=== PATIENT | male | born 1950 | race Asian ===

== ENCOUNTER 2020-02-04 15:19 | Inpatient (IN) | payer MEDICARE, MEDICAID, OTHER ==
[2020-02-04 16:03] LABS: ABS Lymphocytes 0.5 10^3/ul (1.0-4.8); ABS Monocytes 0.6 10^3/ul (0-0.8); Hematocrit 42 % (42-52); Hemoglobin 14.6 g/dL (14.0-18.0); Lymphocyte % 7.3 %; Mean Corpuscular HGB Conc 34 g/dL (31-36); Mean Corpuscular Hemoglobin 30 pg (27-31); Mean Corpuscular Volume 88 fL (80-94); Mean Platelet Volume 8.2 fL (7.4-10.4); Nucleated Red Blood Cells % 0.4; Platelet Count 160 10^3/uL (150-450); Red Blood Count 4.84 10^6 /uL (4.18-5.48); Red Cell Distribution Width 14 % (10-15)
[2020-02-04 16:19] LABS: ALT 31 U/L (7-52); Albumin 3.6 g/dL (3.2-5.2); Alkaline Phosphatase 50 U/L (34-104); BUN/Creatinine Ratio 18.5 (8-20); Blood Urea Nitrogen 15 mg/dL (6-24); C Reactive Protein 107.44 mg/L (<8.01); CO2 Carbon Dioxide 25 mmol/L (22-32); Chloride 95 mmol/L (101-111); EGFR Non-African American 95.1 (>60); Globulin 3.5 g/dL (2-4); Glucose 132 mg/dL (70-100); Sodium 129 mmol/L (135-145); Total Protein 7.1 g/dL (6.4-8.9)
[2020-02-04 16:20] LABS: Anion Gap 9 mmol/L (2-11)
[2020-02-04] MEDS ORDERED: NS 0.9% 1000 ml BAG 1,000 ML IV ONE (17:31)
[2020-02-04 17:38] LABS: Potassium Redraw 3.6 mmol/L (3.5-5.0)
[2020-02-04] MEDS ORDERED: Albuterol HFA INHALER 8 gm MDI INH PRN (18:26)
[2020-02-04 19:07] LABS: Ferritin 610.4 ng/mL (24-336)
[2020-02-04] MEDS ORDERED: Succinylcholine 200 mg VIAL 20 mg/ml 10 ml VIAL (200 mg) ONE (19:38)
[2020-02-04] MEDS ORDERED: Propofol 10 mg/ml 100 ML BTL 100 ML ONE (19:42)
[2020-02-04] MEDS ORDERED: fentaNYL 100 mcg/2 ml 50 MCG/ML VIAL IV SLOW PU PRN (20:11)
[2020-02-04] MEDS ORDERED: fentaNYL 100 mcg/2 ml 50 MCG/ML VIAL ONE (20:12)
[2020-02-04] MEDS: Propofol 10 mg/ml 100 ML BTL 100 ML IV SCH ×2 (20:20→23:10)
[2020-02-04] MEDS: Norepinephrine 16MCG/ML IVPRE 4,000 MCG/250 ML BAG IV ONE ×2 (20:35→20:46)
[2020-02-04] MEDS ORDERED: Propofol 10 MG/ML 20 ML BTL ONE (20:55)
[2020-02-04] MEDS ORDERED: fentaNYL 250 mcg/5 ml 50 MCG/ML 5 ml VIAL (250 MCG) ONE (20:55)
[2020-02-04] MEDS ORDERED: Midazolam 10 mg/10 ml VIAL 1 mg/ml 10 ml VIAL (10 mg) ONE (20:55)
[2020-02-04] MEDS ORDERED: Norepinephrine 16MCG/ML IVPRE 4,000 MCG/250 ML BAG IV SCH (21:00)
[2020-02-04] MEDS ORDERED: Phenylephrine 40 mcg/mL 10mL (400mcg) SYRINGE IV PUSH SCH (21:00)
[2020-02-04] MEDS: fentaNYL INFUSION 50 MCG/ML 2,500 MCG/50 ML BAG IV SCH (21:35)
[2020-02-04] MEDS: Enoxaparin 40 MG/0.4 ML SYR(*) SUBCUT SCH (22:55)
[2020-02-04] MEDS: HYDROXYCHLOROQUINE 25 MG/ML PO SCH (22:55)
[2020-02-04 23:47] LABS: Urine Appearance Clear; Urine Bilirubin Negative (Negative); Urine Blood 1+ (Negative); Urine Color Yellow; Urine Glucose Negative (Negative); Urine Ketones Negative (Negative); Urine Nitrite Negative (Negative); Urine Protein Negative (Negative); Urine Specific Gravity 1.005 (1.010-1.030); Urine Urobilinogen Negative (Negative)
[2020-02-04 23:49] LABS: Urine Bacteria Absent (Absent); Urine Red Blood Cell Trace(0-2/hpf) (Absent); Urine White Blood Cell Trace(0-5/hpf) (Absent)
[2020-02-05] MEDS ORDERED: NS 0.9% IV SCH (00:22)
[2020-02-05] MEDS ORDERED: NOREPINEPHRINE IV SCH (00:22)
[2020-02-05] MEDS: Norepinephrine IV 16 MG in NS 0.9% 250 ml 234 ML IVPB SCH ×3 (01:14→22:34)
[2020-02-05] MEDS: Propofol 10 mg/ml 100 ML BTL 100 ML IV SCH ×5 (01:54→23:11)
[2020-02-05] MEDS ORDERED: fentaNYL 100 mcg/2 ml 50 MCG/ML VIAL IV SLOW PU ONE (03:00)
[2020-02-05 05:34] LABS: ABS Lymphocytes 0.9 10^3/ul (1.0-4.8); ABS Monocytes 0.4 10^3/ul (0-0.8); Hematocrit 37 % (42-52); Hemoglobin 12.8 g/dL (14.0-18.0); Lymphocyte % 8.9 %; Mean Corpuscular HGB Conc 34 g/dL (31-36); Mean Corpuscular Hemoglobin 30 pg (27-31); Mean Corpuscular Volume 88 fL (80-94); Mean Platelet Volume 7.9 fL (7.4-10.4); Platelet Count 182 10^3/uL (150-450); Red Blood Count 4.24 10^6 /uL (4.18-5.48); Red Cell Distribution Width 13 % (10-15); White Blood Count 10.3 10^3/uL (3.5-10.8)
[2020-02-05 05:40] LABS: Albumin 2.9 g/dL (3.2-5.2); Calcium 7.5 mg/dL (8.6-10.3); Magnesium 1.9 mg/dL (1.9-2.7); Potassium 3.3 mmol/L (3.5-5.0); Total Bilirubin 0.7 mg/dL (0.2-1.0)
[2020-02-05] MEDS: fentaNYL INFUSION 50 MCG/ML 2,500 MCG/50 ML BAG IV SCH (05:44)
[2020-02-05 05:46] LABS: BUN/Creatinine Ratio 18.9 (8-20); C Reactive Protein 118.07 mg/L (<8.01); EGFR African American 95.7 (>60); EGFR Non-African American 79.1 (>60); Globulin 2.8 g/dL (2-4); Total Protein 5.7 g/dL (6.4-8.9)
[2020-02-05 06:19] LABS: Ferritin 599.5 ng/mL (24-336)
[2020-02-05] MEDS ORDERED: KCL 20 MEQ/100 ML IVPREMIX 20 MEQ/100 ML BAG IV ONE (07:57)
[2020-02-05] MEDS ORDERED: Magnesium Sulfate 2 gm BAG 2 GM/50 ML BAG IVPB ONE (07:59)
[2020-02-05] MEDS ORDERED: Potassium Chloride LIQUID 20 MEQ/15 ML LIQUID PO ONE (07:59)
[2020-02-05] MEDS ORDERED: KCL 20 MEQ/100 ML IVPREMIX 20 MEQ/100 ML BAG ONE (08:12)
[2020-02-05] MEDS ORDERED: Magnesium Sulfate 2 gm BAG 2 GM/50 ML BAG ONE (08:12)
[2020-02-05] MEDS ORDERED: Chlorhexidine MOUTHWASH 0.12% 15 ML UDC ONE (08:14)
[2020-02-05] MEDS: Pantoprazole VIAL 40 MG VIAL IV SCH (08:44)
[2020-02-05] MEDS: HYDROXYCHLOROQUINE 25 MG/ML PO SCH ×2 (09:25→20:25)
[2020-02-05] MEDS: Midazolam IV for DRIP 100 MG in NS 0.9% 100 ml BAG 80 ML IV SCH (16:22)
[2020-02-05] MEDS: Chlorhexidine MOUTHWASH 0.12% 15 ML UDC TOPICAL SCH ×3 (16:39→20:24)
[2020-02-05] MEDS ORDERED: Azithromycin 100 MG/5 ML SUSP 100 MG/5 ML BTL PO ONE (16:54)
[2020-02-05] MEDS ORDERED: Tocilizumab 200 MG/10 ML 10 ml VIAL IVPB ONE (16:55)
[2020-02-05] MEDS ORDERED: TOCILIZUMAB IVPB ONE (17:00)
[2020-02-05] MEDS ORDERED: NS 0.9% IVPB ONE (17:00)
[2020-02-05] MEDS: Enoxaparin 40 MG/0.4 ML SYR(*) SUBCUT SCH (20:24)
[2020-02-06] MEDS: Chlorhexidine MOUTHWASH 0.12% 15 ML UDC TOPICAL SCH ×7 (00:09→23:54)
[2020-02-06] MEDS: Propofol 10 mg/ml 100 ML BTL 100 ML IV SCH ×3 (05:15→14:16)
[2020-02-06 05:27] LABS: ABS Lymphocytes 0.8 10^3/ul (1.0-4.8); ABS Monocytes 0.2 10^3/ul (0-0.8); Eosinophil % 0.1 %; Hematocrit 38 % (42-52); Hemoglobin 12.9 g/dL (14.0-18.0); Mean Corpuscular HGB Conc 34 g/dL (31-36); Mean Corpuscular Hemoglobin 30 pg (27-31); Mean Corpuscular Volume 89 fL (80-94); Mean Platelet Volume 7.7 fL (7.4-10.4); Platelet Count 177 10^3/uL (150-450); Red Blood Count 4.25 10^6 /uL (4.18-5.48); Red Cell Distribution Width 14 % (10-15); White Blood Count 9.7 10^3/uL (3.5-10.8)
[2020-02-06 05:46] LABS: Albumin 2.8 g/dL (3.2-5.2); Albumin/Globulin Ratio 0.9 (1-3); BUN/Creatinine Ratio 12.5 (8-20); Calcium 7.7 mg/dL (8.6-10.3); EGFR African American 73.1 (>60); EGFR Non-African American 60.4 (>60); Globulin 3.2 g/dL (2-4); Total Bilirubin 0.6 mg/dL (0.2-1.0)
[2020-02-06 06:08] LABS: C Reactive Protein 196.56 mg/L (<8.01)
[2020-02-06 06:12] LABS: Potassium 3.7 mmol/L (3.5-5.0)
[2020-02-06] MEDS: Pantoprazole VIAL 40 MG VIAL IV SCH (08:07)
[2020-02-06 09:34] LABS: Magnesium 2.7 mg/dL (1.9-2.7)
[2020-02-06 09:39] LABS: Phosphorus 4.1 mg/dL (2.5-5.0)
[2020-02-06] MEDS: Norepinephrine 16MCG/ML IVPRE 4,000 MCG/250 ML BAG IV SCH (14:30)
[2020-02-06] MEDS: Azithromycin 100 MG/5 ML SUSP 100 MG/5 ML BTL PO SCH (15:56)
[2020-02-06] MEDS: Enoxaparin 40 MG/0.4 ML SYR(*) SUBCUT SCH (19:49)
[2020-02-06] MEDS: HYDROXYCHLOROQUINE 25 MG/ML PO SCH (19:49)
[2020-02-07] MEDS: Propofol 10 mg/ml 100 ML BTL 100 ML IV SCH ×4 (00:03→18:05)
[2020-02-07] MEDS: Midazolam IV for DRIP 100 MG in NS 0.9% 100 ml BAG 80 ML IV SCH (03:00)
[2020-02-07] MEDS: Chlorhexidine MOUTHWASH 0.12% 15 ML UDC TOPICAL SCH ×5 (03:29→20:11)
[2020-02-07 05:27] LABS: ABS Lymphocytes 0.5 10^3/ul (1.0-4.8); ABS Monocytes 0.3 10^3/ul (0-0.8); Eosinophil % 0.5 %; Hematocrit 37 % (42-52); Hemoglobin 12.5 g/dL (14.0-18.0); Lymphocyte % 5.7 %; Mean Corpuscular HGB Conc 34 g/dL (31-36); Mean Corpuscular Hemoglobin 30 pg (27-31); Mean Corpuscular Volume 89 fL (80-94); Mean Platelet Volume 7.5 fL (7.4-10.4); Platelet Count 216 10^3/uL (150-450); Red Blood Count 4.13 10^6 /uL (4.18-5.48); Red Cell Distribution Width 14 % (10-15); White Blood Count 9.1 10^3/uL (3.5-10.8)
[2020-02-07] MEDS: Norepinephrine 16MCG/ML IVPRE 4,000 MCG/250 ML BAG IV SCH (05:41)
[2020-02-07 05:43] LABS: Albumin 2.7 g/dL (3.2-5.2); Albumin/Globulin Ratio 0.8 (1-3); BUN/Creatinine Ratio 14.3 (8-20); Calcium 7.7 mg/dL (8.6-10.3); EGFR African American 61.2 (>60); EGFR Non-African American 50.5 (>60); Globulin 3.2 g/dL (2-4); Potassium 3.9 mmol/L (3.5-5.0); Total Bilirubin 0.4 mg/dL (0.2-1.0); Total Protein 5.9 g/dL (6.4-8.9)
[2020-02-07 05:58] LABS: C Reactive Protein 88.78 mg/L (<8.01)
[2020-02-07] MEDS: fentaNYL INFUSION 50 MCG/ML 2,500 MCG/50 ML BAG IV SCH (06:21)
[2020-02-07] MEDS: Pantoprazole VIAL 40 MG VIAL IV SCH (07:58)
[2020-02-07] MEDS: Enoxaparin 30 MG/0.3 ML SYR(*) SUBCUT SCH ×2 (09:54→20:10)
[2020-02-07 12:51] LABS: Magnesium 2.4 mg/dL (1.9-2.7)
[2020-02-07] MEDS: Azithromycin 100 MG/5 ML SUSP 100 MG/5 ML BTL PO SCH (17:55)
[2020-02-07] MEDS: HYDROXYCHLOROQUINE 25 MG/ML PO SCH (20:11)
[2020-02-08] MEDS: Chlorhexidine MOUTHWASH 0.12% 15 ML UDC TOPICAL SCH ×6 (00:21→20:25)
[2020-02-08] MEDS: Propofol 10 mg/ml 100 ML BTL 100 ML IV SCH ×5 (03:26→23:25)
[2020-02-08 05:09] LABS: ABS Eosinophils 0.1 10^3/ul (0-0.6); ABS Lymphocytes 0.5 10^3/ul (1.0-4.8); ABS Monocytes 0.3 10^3/ul (0-0.8); Eosinophil % 0.9 %; Hematocrit 37 % (42-52); Hemoglobin 12.2 g/dL (14.0-18.0); Lymphocyte % 4.6 %; Mean Corpuscular HGB Conc 34 g/dL (31-36); Mean Corpuscular Hemoglobin 30 pg (27-31); Mean Corpuscular Volume 89 fL (80-94); Mean Platelet Volume 7.1 fL (7.4-10.4); Nucleated Red Blood Cells % 0.1; Platelet Count 233 10^3/uL (150-450); Red Blood Count 4.08 10^6 /uL (4.18-5.48); Red Cell Distribution Width 14 % (10-15); White Blood Count 9.8 10^3/uL (3.5-10.8)
[2020-02-08 05:26] LABS: Albumin 2.5 g/dL (3.2-5.2); Albumin/Globulin Ratio 0.9 (1-3); BUN/Creatinine Ratio 18.8 (8-20); CRP High Sensitivity 27.25 mg/L (<2.00); Calcium 7.5 mg/dL (8.6-10.3); EGFR African American 67.8 (>60); EGFR Non-African American 56.1 (>60); Globulin 2.9 g/dL (2-4); Potassium 3.6 mmol/L (3.5-5.0); Total Bilirubin 0.5 mg/dL (0.2-1.0); Total Protein 5.4 g/dL (6.4-8.9)
[2020-02-08] MEDS: Pantoprazole VIAL 40 MG VIAL IV SCH (08:12)
[2020-02-08] MEDS: Enoxaparin 30 MG/0.3 ML SYR(*) SUBCUT SCH ×2 (08:12→20:25)
[2020-02-08] MEDS ORDERED: Furosemide 20 mg/2 ml IV VIAL IV SLOW PU ONE (13:34)
[2020-02-08] MEDS: Norepinephrine 16MCG/ML IVPRE 4,000 MCG/250 ML BAG IV SCH (18:14)
[2020-02-08] MEDS: Azithromycin 100 MG/5 ML SUSP 100 MG/5 ML BTL PO SCH (18:17)
[2020-02-08] MEDS: HYDROXYCHLOROQUINE 25 MG/ML PO SCH (20:25)
[2020-02-09] MEDS: Chlorhexidine MOUTHWASH 0.12% 15 ML UDC TOPICAL SCH ×6 (00:42→20:23)
[2020-02-09] MEDS: fentaNYL INFUSION 50 MCG/ML 2,500 MCG/50 ML BAG IV SCH ×2 (02:25→21:35)
[2020-02-09] MEDS: Propofol 10 mg/ml 100 ML BTL 100 ML IV SCH ×3 (06:27→23:42)
[2020-02-09 06:48] LABS: Albumin 2.5 g/dL (3.2-5.2); Albumin/Globulin Ratio 0.8 (1-3); BUN/Creatinine Ratio 23.5 (8-20); C Reactive Protein 20.1 mg/L (<8.01); Calcium 7.8 mg/dL (8.6-10.3); EGFR African American 73.8 (>60); Globulin 3.1 g/dL (2-4); Potassium 3.5 mmol/L (3.5-5.0); Total Bilirubin 0.3 mg/dL (0.2-1.0); Total Protein 5.6 g/dL (6.4-8.9)
[2020-02-09] MEDS ORDERED: Potassium Chloride LIQUID 20 MEQ/15 ML LIQUID PO ONE (09:41)
[2020-02-09] MEDS ORDERED: Furosemide 20 mg/2 ml IV VIAL IV SLOW PU ONE ×2 (09:41→16:58)
[2020-02-09] MEDS: Enoxaparin 30 MG/0.3 ML SYR(*) SUBCUT SCH ×2 (10:05→20:23)
[2020-02-09] MEDS: Pantoprazole VIAL 40 MG VIAL IV SCH (10:06)
[2020-02-09] MEDS: Polyethylene Glycol 3350 17 GM PACKET PO PRN (10:07)
[2020-02-09] MEDS: Magnesium Hydroxide LIQ 30 ML UDC PO SCH (10:07)
[2020-02-09] MEDS: Norepinephrine 16MCG/ML IVPRE 4,000 MCG/250 ML BAG IV SCH (14:50)
[2020-02-09] MEDS: Azithromycin 100 MG/5 ML SUSP 100 MG/5 ML BTL PO SCH (20:23)
[2020-02-09] MEDS: Senna TAB 8.6 mg TAB PO SCH (20:23)
[2020-02-10] MEDS: Chlorhexidine MOUTHWASH 0.12% 15 ML UDC TOPICAL SCH ×6 (00:09→20:50)
[2020-02-10 04:54] LABS: Hematocrit 37 % (42-52); Hemoglobin 12.5 g/dL (14.0-18.0); Mean Corpuscular HGB Conc 33 g/dL (31-36); Mean Corpuscular Hemoglobin 30 pg (27-31); Mean Corpuscular Volume 90 fL (80-94); Mean Platelet Volume 7.5 fL (7.4-10.4); Platelet Count 268 10^3/uL (150-450); Red Blood Count 4.16 10^6 /uL (4.18-5.48); Red Cell Distribution Width 14 % (10-15); White Blood Count 10.5 10^3/uL (3.5-10.8)
[2020-02-10 05:07] LABS: C Reactive Protein 16.72 mg/L (<8.01)
[2020-02-10] MEDS: Propofol 10 mg/ml 100 ML BTL 100 ML IV SCH ×3 (05:28→18:17)
[2020-02-10 06:02] LABS: ABS Eosinophils 0.1 10^3/ul (0-0.6); ABS Lymphocytes 0.9 10^3/ul (1.0-4.8); ABS Monocytes 0.5 10^3/ul (0-0.8); Eosinophil % 0.8 %; Lymphocyte % 8.3 %; Nucleated Red Blood Cells % 0.1
[2020-02-10] MEDS: Magnesium Hydroxide LIQ 30 ML UDC PO SCH (07:57)
[2020-02-10] MEDS: Pantoprazole VIAL 40 MG VIAL IV SCH (07:57)
[2020-02-10] MEDS: Polyethylene Glycol 3350 17 GM PACKET PO PRN (07:57)
[2020-02-10] MEDS: Enoxaparin 30 MG/0.3 ML SYR(*) SUBCUT SCH ×2 (07:57→20:51)
[2020-02-10] MEDS ORDERED: Ondansetron 4 mg VIAL 2 MG/ML 2 ml VIAL IV PRN (10:13)
[2020-02-10 10:22] LABS: Albumin 2.8 g/dL (3.2-5.2); Albumin/Globulin Ratio 0.8 (1-3); BUN/Creatinine Ratio 29.5 (8-20); Calcium 7.9 mg/dL (8.6-10.3); EGFR African American 71.7 (>60); EGFR Non-African American 59.2 (>60); Globulin 3.4 g/dL (2-4); Magnesium 2.4 mg/dL (1.9-2.7); Phosphorus 3.7 mg/dL (2.5-5.0); Potassium 4.6 mmol/L (3.5-5.0); Total Bilirubin 0.4 mg/dL (0.2-1.0); Total Protein 6.2 g/dL (6.4-8.9)
[2020-02-10] MEDS: Furosemide 20 mg/2 ml IV VIAL IV SLOW PU SCH ×2 (10:46→20:52)
[2020-02-10] MEDS: OXACILLIN IVPB SCH ×3 (11:00→16:55)
[2020-02-10] MEDS: NS 0.9% IVPB SCH ×3 (11:00→16:55)
[2020-02-10] MEDS ORDERED: Metoclopramide 5 MG/ML VIAL (10 mg) IV ONE (15:51)
[2020-02-10] MEDS: Metoclopramide 5 MG/ML VIAL (10 mg) IV SCH (17:00)
[2020-02-10] MEDS: Senna TAB 8.6 mg TAB PO SCH (20:50)
[2020-02-11] MEDS: Chlorhexidine MOUTHWASH 0.12% 15 ML UDC TOPICAL SCH ×6 (00:12→20:52)
[2020-02-11] MEDS: OXACILLIN IVPB SCH ×4 (00:12→17:10)
[2020-02-11] MEDS: NS 0.9% IVPB SCH ×4 (00:12→17:10)
[2020-02-11] MEDS: Metoclopramide 5 MG/ML VIAL (10 mg) IV SCH ×4 (00:13→17:09)
[2020-02-11] MEDS: Propofol 10 mg/ml 100 ML BTL 100 ML IV SCH ×5 (00:17→21:05)
[2020-02-11] MEDS: Furosemide 20 mg/2 ml IV VIAL IV SLOW PU SCH ×2 (01:30→08:00)
[2020-02-11 05:35] LABS: Albumin 2.9 g/dL (3.2-5.2); Albumin/Globulin Ratio 0.9 (1-3); BUN/Creatinine Ratio 35.2 (8-20); C Reactive Protein 14.4 mg/L (<8.01); Calcium 7.8 mg/dL (8.6-10.3); EGFR African American 60.2 (>60); EGFR Non-African American 49.7 (>60); Globulin 3.2 g/dL (2-4); Magnesium 2.4 mg/dL (1.9-2.7); Phosphorus 3.9 mg/dL (2.5-5.0); Potassium 3.8 mmol/L (3.5-5.0); Total Bilirubin 0.6 mg/dL (0.2-1.0); Total Protein 6.1 g/dL (6.4-8.9)
[2020-02-11] MEDS: Pantoprazole VIAL 40 MG VIAL IV SCH (08:00)
[2020-02-11] MEDS: Magnesium Hydroxide LIQ 30 ML UDC PO SCH (08:00)
[2020-02-11] MEDS: Polyethylene Glycol 3350 17 GM PACKET PO SCH ×2 (08:00→11:29)
[2020-02-11] MEDS: Enoxaparin 30 MG/0.3 ML SYR(*) SUBCUT SCH ×2 (08:00→20:52)
[2020-02-11] MEDS ORDERED: Potassium Chloride LIQUID 20 MEQ/15 ML LIQUID PO ONE (09:02)
[2020-02-11 13:21] LABS: ABS Eosinophils 0.1 10^3/ul (0-0.6); ABS Lymphocytes 0.6 10^3/ul (1.0-4.8); ABS Monocytes 0.7 10^3/ul (0-0.8); Eosinophil % 1.1 %; Hematocrit 36 % (42-52); Hemoglobin 12.3 g/dL (14.0-18.0); Lymphocyte % 5.8 %; Mean Corpuscular HGB Conc 35 g/dL (31-36); Mean Corpuscular Hemoglobin 31 pg (27-31); Mean Corpuscular Volume 89 fL (80-94); Mean Platelet Volume 7.6 fL (7.4-10.4); Nucleated Red Blood Cells % 0.1; Platelet Count 321 10^3/uL (150-450); Red Blood Count 4.02 10^6 /uL (4.18-5.48); Red Cell Distribution Width 14 % (10-15); White Blood Count 10.5 10^3/uL (3.5-10.8)
[2020-02-11] MEDS: fentaNYL INFUSION 50 MCG/ML 2,500 MCG/50 ML BAG IV SCH (19:37)
[2020-02-11] MEDS: Senna TAB 8.6 mg TAB PO SCH (20:53)
[2020-02-12] MEDS: NS 0.9% IVPB SCH ×5 (01:26→22:24)
[2020-02-12] MEDS: Metoclopramide 5 MG/ML VIAL (10 mg) IV SCH ×5 (01:26→22:24)
[2020-02-12] MEDS: OXACILLIN IVPB SCH ×5 (01:26→22:24)
[2020-02-12] MEDS: Chlorhexidine MOUTHWASH 0.12% 15 ML UDC TOPICAL SCH ×7 (01:27→23:07)
[2020-02-12] MEDS: Propofol 10 mg/ml 100 ML BTL 100 ML IV SCH ×4 (01:34→23:24)
[2020-02-12 04:55] LABS: Hematocrit 34 % (42-52); Hemoglobin 11.8 g/dL (14.0-18.0); Mean Corpuscular HGB Conc 35 g/dL (31-36); Mean Corpuscular Hemoglobin 31 pg (27-31); Mean Corpuscular Volume 89 fL (80-94); Mean Platelet Volume 7.6 fL (7.4-10.4); Platelet Count 331 10^3/uL (150-450); Red Blood Count 3.82 10^6 /uL (4.18-5.48); Red Cell Distribution Width 14 % (10-15); White Blood Count 7.3 10^3/uL (3.5-10.8)
[2020-02-12 05:14] LABS: Albumin 2.8 g/dL (3.2-5.2); Albumin/Globulin Ratio 0.9 (1-3); BUN/Creatinine Ratio 42.1 (8-20); Calcium 7.6 mg/dL (8.6-10.3); EGFR African American 72.4 (>60); EGFR Non-African American 59.8 (>60); Globulin 3.1 g/dL (2-4); Potassium 3.8 mmol/L (3.5-5.0); Total Bilirubin 0.5 mg/dL (0.2-1.0); Total Protein 5.9 g/dL (6.4-8.9)
[2020-02-12 05:26] LABS: ABS Eosinophils 0.1 10^3/ul (0-0.6); ABS Monocytes 0.6 10^3/ul (0-0.8); Eosinophil % 1.6 %; Lymphocyte % 13.3 %
[2020-02-12] MEDS: Enoxaparin 30 MG/0.3 ML SYR(*) SUBCUT SCH ×2 (08:07→20:01)
[2020-02-12] MEDS: Pantoprazole VIAL 40 MG VIAL IV SCH (08:07)
[2020-02-12] MEDS: Polyethylene Glycol 3350 17 GM PACKET PO SCH (08:08)
[2020-02-12] MEDS: Magnesium Hydroxide LIQ 30 ML UDC PO SCH (08:08)
[2020-02-12] MEDS: Norepinephrine 16MCG/ML IVPRE 4,000 MCG/250 ML BAG IV SCH (10:01)
[2020-02-12] MEDS ORDERED: acetaZOLAMIDE IV 500 MG in NS 0.9% 50 ML 50 ML IVPB ONE (11:37)
[2020-02-12] MEDS: Senna TAB 8.6 mg TAB PO SCH (20:01)
[2020-02-13] MEDS: Chlorhexidine MOUTHWASH 0.12% 15 ML UDC TOPICAL SCH ×5 (03:59→21:06)
[2020-02-13] MEDS: OXACILLIN IVPB SCH ×4 (04:47→21:08)
[2020-02-13] MEDS: NS 0.9% IVPB SCH ×4 (04:47→21:08)
[2020-02-13] MEDS: Metoclopramide 5 MG/ML VIAL (10 mg) IV SCH ×4 (04:47→21:06)
[2020-02-13 06:08] LABS: Hematocrit 33 % (42-52); Hemoglobin 11.1 g/dL (14.0-18.0); Mean Corpuscular HGB Conc 34 g/dL (31-36); Mean Corpuscular Hemoglobin 31 pg (27-31); Mean Corpuscular Volume 91 fL (80-94); Mean Platelet Volume 7.6 fL (7.4-10.4); Platelet Count 326 10^3/uL (150-450); Red Blood Count 3.63 10^6 /uL (4.18-5.48); Red Cell Distribution Width 14 % (10-15); White Blood Count 5.2 10^3/uL (3.5-10.8)
[2020-02-13 06:24] LABS: ABS Eosinophils 0.1 10^3/ul (0-0.6); ABS Lymphocytes 0.8 10^3/ul (1.0-4.8); ABS Monocytes 0.4 10^3/ul (0-0.8); Eosinophil % 1.6 %; Lymphocyte % 14.7 %
[2020-02-13 06:25] LABS: Albumin 2.7 g/dL (3.2-5.2); Albumin/Globulin Ratio 0.8 (1-3); BUN/Creatinine Ratio 42.1 (8-20); Calcium 7.7 mg/dL (8.6-10.3); EGFR African American 72.4 (>60); EGFR Non-African American 59.8 (>60); Globulin 3.2 g/dL (2-4); Potassium 3.3 mmol/L (3.5-5.0); Total Bilirubin 0.4 mg/dL (0.2-1.0); Total Protein 5.9 g/dL (6.4-8.9)
[2020-02-13] MEDS: Pantoprazole VIAL 40 MG VIAL IV SCH (09:15)
[2020-02-13] MEDS: Polyethylene Glycol 3350 17 GM PACKET PO SCH (09:15)
[2020-02-13] MEDS: Magnesium Hydroxide LIQ 30 ML UDC PO SCH (09:15)
[2020-02-13] MEDS: Enoxaparin 30 MG/0.3 ML SYR(*) SUBCUT SCH ×2 (09:15→21:06)
[2020-02-13] MEDS: Propofol 10 mg/ml 100 ML BTL 100 ML IV SCH ×3 (09:45→21:06)
[2020-02-13] MEDS: KCL 10 MEQ/50 ML IVPREMIX 10 MEQ/50 ML BAG IV SCH ×2 (11:55→13:36)
[2020-02-13] MEDS: Senna TAB 8.6 mg TAB PO SCH (21:30)
[2020-02-14] MEDS: Chlorhexidine MOUTHWASH 0.12% 15 ML UDC TOPICAL SCH ×6 (00:13→20:25)
[2020-02-14] MEDS: Propofol 10 mg/ml 100 ML BTL 100 ML IV SCH ×4 (02:44→21:28)
[2020-02-14] MEDS: fentaNYL INFUSION 50 MCG/ML 2,500 MCG/50 ML BAG IV SCH (02:50)
[2020-02-14] MEDS: NS 0.9% IVPB SCH ×4 (05:28→23:22)
[2020-02-14] MEDS: Metoclopramide 5 MG/ML VIAL (10 mg) IV SCH ×3 (05:28→16:27)
[2020-02-14] MEDS: OXACILLIN IVPB SCH ×4 (05:28→23:22)
[2020-02-14 06:03] LABS: ABS Eosinophils 0.1 10^3/ul (0-0.6); ABS Lymphocytes 0.8 10^3/ul (1.0-4.8); ABS Monocytes 0.5 10^3/ul (0-0.8); Eosinophil % 1.8 %; Hematocrit 34 % (42-52); Hemoglobin 11.1 g/dL (14.0-18.0); Lymphocyte % 13.4 %; Mean Corpuscular HGB Conc 33 g/dL (31-36); Mean Corpuscular Hemoglobin 30 pg (27-31); Mean Corpuscular Volume 92 fL (80-94); Mean Platelet Volume 7.5 fL (7.4-10.4); Platelet Count 339 10^3/uL (150-450); Red Blood Count 3.67 10^6 /uL (4.18-5.48); Red Cell Distribution Width 15 % (10-15); White Blood Count 5.7 10^3/uL (3.5-10.8)
[2020-02-14 06:18] LABS: Albumin 2.7 g/dL (3.2-5.2); Albumin/Globulin Ratio 0.8 (1-3); BUN/Creatinine Ratio 44.4 (8-20); Calcium 7.7 mg/dL (8.6-10.3); EGFR African American 82.5 (>60); EGFR Non-African American 68.2 (>60); Globulin 3.3 g/dL (2-4); Potassium 3.5 mmol/L (3.5-5.0); Total Bilirubin 0.3 mg/dL (0.2-1.0)
[2020-02-14] MEDS: Polyethylene Glycol 3350 17 GM PACKET PO SCH (08:51)
[2020-02-14] MEDS: Pantoprazole VIAL 40 MG VIAL IV SCH (08:51)
[2020-02-14] MEDS: Enoxaparin 30 MG/0.3 ML SYR(*) SUBCUT SCH ×2 (08:51→20:25)
[2020-02-14] MEDS: Magnesium Hydroxide LIQ 30 ML UDC PO SCH (08:52)
[2020-02-14] MEDS ORDERED: NS 0.9% 100 ml BAG 100 ML ONE (10:32)
[2020-02-15] MEDS: Chlorhexidine MOUTHWASH 0.12% 15 ML UDC TOPICAL SCH ×7 (01:45→23:32)
[2020-02-15] MEDS: Propofol* 20 ML VIAL - FOR IV LINE PRIMING ONLY SCH ×3 (04:14→15:00)
[2020-02-15] MEDS: Propofol 10 mg/ml 100 ML BTL 100 ML IV SCH ×3 (04:16→20:37)
[2020-02-15 04:42] LABS: ABS Eosinophils 0.1 10^3/ul (0-0.6); ABS Lymphocytes 0.9 10^3/ul (1.0-4.8); ABS Monocytes 0.6 10^3/ul (0-0.8); Eosinophil % 1.4 %; Hematocrit 33 % (42-52); Hemoglobin 11.1 g/dL (14.0-18.0); Lymphocyte % 14.4 %; Mean Corpuscular HGB Conc 33 g/dL (31-36); Mean Corpuscular Hemoglobin 30 pg (27-31); Mean Corpuscular Volume 91 fL (80-94); Mean Platelet Volume 7.3 fL (7.4-10.4); Platelet Count 332 10^3/uL (150-450); Red Blood Count 3.68 10^6 /uL (4.18-5.48); Red Cell Distribution Width 14 % (10-15); White Blood Count 6.2 10^3/uL (3.5-10.8)
[2020-02-15 05:38] LABS: Albumin 2.7 g/dL (3.2-5.2); Calcium 7.9 mg/dL (8.6-10.3); Potassium 3.8 mmol/L (3.5-5.0); Total Bilirubin 0.3 mg/dL (0.2-1.0)
[2020-02-15 05:44] LABS: Albumin/Globulin Ratio 0.9 (1-3); BUN/Creatinine Ratio 40.7 (8-20); EGFR African American 100.6 (>60); EGFR Non-African American 83.1 (>60); Globulin 2.9 g/dL (2-4); Total Protein 5.6 g/dL (6.4-8.9)
[2020-02-15] MEDS: NS 0.9% IVPB SCH ×4 (06:09→22:13)
[2020-02-15] MEDS: OXACILLIN IVPB SCH ×4 (06:09→22:13)
[2020-02-15] MEDS: Enoxaparin 30 MG/0.3 ML SYR(*) SUBCUT SCH (08:13)
[2020-02-15] MEDS: Polyethylene Glycol 3350 17 GM PACKET PO SCH (08:13)
[2020-02-15] MEDS: Magnesium Hydroxide LIQ 30 ML UDC PO SCH (08:13)
[2020-02-15] MEDS: Pantoprazole VIAL 40 MG VIAL IV SCH (08:13)
[2020-02-15] MEDS: Famotidine IV 10 MG/ML 2 ml VIAL (20 mg) IV SLOW PU SCH (20:01)
[2020-02-16] MEDS: Propofol 10 mg/ml 100 ML BTL 100 ML IV SCH ×4 (01:23→21:59)
[2020-02-16] MEDS: Propofol* 20 ML VIAL - FOR IV LINE PRIMING ONLY SCH ×3 (01:23→17:14)
[2020-02-16] MEDS: Chlorhexidine MOUTHWASH 0.12% 15 ML UDC TOPICAL SCH ×6 (03:35→23:32)
[2020-02-16 04:17] LABS: Albumin 2.7 g/dL (3.2-5.2); Albumin/Globulin Ratio 0.9 (1-3); BUN/Creatinine Ratio 38.4 (8-20); Calcium 7.7 mg/dL (8.6-10.3); EGFR African American 107.3 (>60); EGFR Non-African American 88.7 (>60); Total Bilirubin 0.3 mg/dL (0.2-1.0); Total Protein 5.7 g/dL (6.4-8.9)
[2020-02-16 04:22] LABS: ABS Eosinophils 0.1 10^3/ul (0-0.6); ABS Monocytes 0.5 10^3/ul (0-0.8); Eosinophil % 1.4 %; Hematocrit 34 % (42-52); Hemoglobin 11.1 g/dL (14.0-18.0); Lymphocyte % 17.1 %; Mean Corpuscular HGB Conc 33 g/dL (31-36); Mean Corpuscular Hemoglobin 30 pg (27-31); Mean Corpuscular Volume 90 fL (80-94); Mean Platelet Volume 7.6 fL (7.4-10.4); Platelet Count 326 10^3/uL (150-450); Red Blood Count 3.74 10^6 /uL (4.18-5.48); Red Cell Distribution Width 14 % (10-15); White Blood Count 5.7 10^3/uL (3.5-10.8)
[2020-02-16] MEDS: NS 0.9% IVPB SCH (04:34)
[2020-02-16] MEDS: OXACILLIN IVPB SCH (04:34)
[2020-02-16] MEDS ORDERED: Potassium Chloride LIQUID 20 MEQ/15 ML LIQUID PO ONE (05:15)
[2020-02-16] MEDS: Famotidine IV 10 MG/ML 2 ml VIAL (20 mg) IV SLOW PU SCH ×2 (08:24→20:39)
[2020-02-16] MEDS ORDERED: Piperacillin/Tazobac ADVAN(*) 3.375 GM in NS 0.9% 100 ml BAG 100 ML IVPB ONE (08:50)
[2020-02-16] MEDS ORDERED: Zosyn per Pharmacy NOTE FOLLOW UP SCH (09:00)
[2020-02-16] MEDS: Enoxaparin 40 MG/0.4 ML SYR(*) SUBCUT SCH (10:43)
[2020-02-16] MEDS ORDERED: KCL 20 MEQ/100 ML IVPREMIX 20 MEQ/100 ML BAG IV SCH (16:00)
[2020-02-16] MEDS: ZOSYN 3.375 GM Q8H per EXTENDED INFUSION IVPB SCH ×2 (16:29→23:44)
[2020-02-17] MEDS: Propofol 10 mg/ml 100 ML BTL 100 ML IV SCH ×2 (03:21→08:12)
[2020-02-17] MEDS: Chlorhexidine MOUTHWASH 0.12% 15 ML UDC TOPICAL SCH ×3 (03:43→10:45)
[2020-02-17 05:18] LABS: BUN/Creatinine Ratio 34.1 (8-20); Calcium 7.3 mg/dL (8.6-10.3); EGFR African American 113.4 (>60); EGFR Non-African American 93.7 (>60); Magnesium 1.8 mg/dL (1.9-2.7); Potassium 2.9 mmol/L (3.5-5.0)
[2020-02-17] MEDS: Propofol* 20 ML VIAL - FOR IV LINE PRIMING ONLY SCH (07:03)
[2020-02-17] MEDS: ZOSYN 3.375 GM Q8H per EXTENDED INFUSION IVPB SCH ×2 (08:00→16:00)
[2020-02-17] MEDS: Enoxaparin 40 MG/0.4 ML SYR(*) SUBCUT SCH (08:12)
[2020-02-17] MEDS: Potassium Chloride LIQUID 20 MEQ/15 ML LIQUID PO SCH ×2 (08:13→10:33)
[2020-02-17] MEDS: Famotidine IV 10 MG/ML 2 ml VIAL (20 mg) IV SLOW PU SCH ×2 (08:13→22:52)
[2020-02-17] MEDS ORDERED: Magnesium Sulfate 2 GM IV (Premix) IVPB ONE (10:00)
[2020-02-17] MEDS: KCL 20 MEQ/100 ML IVPREMIX 20 MEQ/100 ML BAG IV SCH ×2 (10:38→13:15)
[2020-02-17] MEDS ORDERED: Lorazepam PYXIS KEY PRN (13:49)
[2020-02-17 16:37] LABS: BUN/Creatinine Ratio 31.3 (8-20); Calcium 7.8 mg/dL (8.6-10.3); EGFR African American 116.7 (>60); EGFR Non-African American 96.4 (>60); Potassium 3.4 mmol/L (3.5-5.0)
[2020-02-17 17:26] LABS: Magnesium 2.3 mg/dL (1.9-2.7)
[2020-02-17] MEDS ORDERED: Haloperidol 5 mg/ml SDV IV/IM 5 MG/ML AMP ONE (19:39)
[2020-02-17] MEDS ORDERED: Dexmedetomidine 1,000 MCG in NS 0.9% 250 ml 240 ML IV SCH (21:00)
[2020-02-18] MEDS: ZOSYN 3.375 GM Q8H per EXTENDED INFUSION IVPB SCH ×3 (00:13→16:48)
[2020-02-18 05:25] LABS: Hematocrit 33 % (42-52); Hemoglobin 11.4 g/dL (14.0-18.0); Mean Corpuscular HGB Conc 34 g/dL (31-36); Mean Corpuscular Hemoglobin 30 pg (27-31); Mean Corpuscular Volume 89 fL (80-94); Mean Platelet Volume 7.8 fL (7.4-10.4); Platelet Count 287 10^3/uL (150-450); Red Blood Count 3.76 10^6 /uL (4.18-5.48); Red Cell Distribution Width 14 % (10-15)
[2020-02-18 05:35] LABS: BUN/Creatinine Ratio 30.8 (8-20); Calcium 7.6 mg/dL (8.6-10.3); EGFR African American 120.1 (>60); EGFR Non-African American 99.3 (>60); Potassium 3.1 mmol/L (3.5-5.0)
[2020-02-18] MEDS: KCL 20 MEQ/100 ML IVPREMIX 20 MEQ/100 ML BAG IV SCH ×3 (08:09→12:43)
[2020-02-18] MEDS: Enoxaparin 40 MG/0.4 ML SYR(*) SUBCUT SCH (09:15)
[2020-02-18] MEDS: Famotidine IV 10 MG/ML 2 ml VIAL (20 mg) IV SLOW PU SCH ×2 (09:15→19:44)
[2020-02-18] MEDS ORDERED: KCL 20 MEQ/100 ML IVPREMIX 20 MEQ/100 ML BAG IV SCH (14:00)
[2020-02-18] MEDS: Dextran 70/Hypromellose Tears Eye Drops 15 ml BTL (for Artificials Tears) BOTH EYES PRN (21:52)
[2020-02-19] MEDS: ZOSYN 3.375 GM Q8H per EXTENDED INFUSION IVPB SCH ×3 (00:38→15:59)
[2020-02-19 05:06] LABS: Urine Appearance Clear; Urine Bilirubin Negative (Negative); Urine Blood Negative (Negative); Urine Color Yellow; Urine Glucose Negative (Negative); Urine Ketones Trace (Negative); Urine Nitrite Negative (Negative); Urine Protein Negative (Negative); Urine Specific Gravity 1.017 (1.010-1.030); Urine Urobilinogen Negative (Negative)
[2020-02-19 05:21] LABS: BUN/Creatinine Ratio 26.7 (8-20); Calcium 7.9 mg/dL (8.6-10.3); EGFR African American 107.3 (>60); EGFR Non-African American 88.7 (>60)
[2020-02-19] MEDS ORDERED: Potassium Chlor 20 meq TAB.ER PO ONE ×2 (06:36→17:00)
[2020-02-19] MEDS: Enoxaparin 40 MG/0.4 ML SYR(*) SUBCUT SCH ×2 (08:27→19:43)
[2020-02-19] MEDS: Famotidine IV 10 MG/ML 2 ml VIAL (20 mg) IV SLOW PU SCH ×2 (08:27→19:44)
[2020-02-19 09:05] LABS: Magnesium 1.8 mg/dL (1.9-2.7)
[2020-02-19] MEDS ORDERED: Magnesium Sulfate 2 gm BAG 2 GM/50 ML BAG IVPB ONE (12:01)
[2020-02-19 12:49] LABS: C Reactive Protein 1.54 mg/L (<8.01)
[2020-02-19] MEDS: Dextran 70/Hypromellose Tears Eye Drops 15 ml BTL (for Artificials Tears) BOTH EYES PRN (22:42)
[2020-02-20] MEDS: ZOSYN 3.375 GM Q8H per EXTENDED INFUSION IVPB SCH ×3 (00:57→15:17)
[2020-02-20] MEDS: Dextran 70/Hypromellose Tears Eye Drops 15 ml BTL (for Artificials Tears) BOTH EYES PRN (05:26)
[2020-02-20 05:43] LABS: ABS Eosinophils 0.5 10^3/ul (0-0.6); ABS Lymphocytes 1.7 10^3/ul (1.0-4.8); Eosinophil % 5.6 %; Hematocrit 37 % (42-52); Hemoglobin 12.3 g/dL (14.0-18.0); Lymphocyte % 20.8 %; Mean Corpuscular HGB Conc 34 g/dL (31-36); Mean Corpuscular Hemoglobin 30 pg (27-31); Mean Corpuscular Volume 90 fL (80-94); Mean Platelet Volume 7.7 fL (7.4-10.4); Platelet Count 297 10^3/uL (150-450); Red Cell Distribution Width 14 % (10-15); White Blood Count 8.1 10^3/uL (3.5-10.8)
[2020-02-20 05:56] LABS: Anion Gap 8 mmol/L (2-11); BUN/Creatinine Ratio 24.5 (8-20); Blood Urea Nitrogen 23 mg/dL (6-24); CO2 Carbon Dioxide 25 mmol/L (22-32); Chloride 106 mmol/L (101-111); EGFR African American 96.9 (>60); Glucose 104 mg/dL (70-100); Potassium 3.2 mmol/L (3.5-5.0); Sodium 139 mmol/L (135-145)
[2020-02-20] MEDS: Famotidine IV 10 MG/ML 2 ml VIAL (20 mg) IV SLOW PU SCH ×2 (07:35→20:46)
[2020-02-20] MEDS: Enoxaparin 40 MG/0.4 ML SYR(*) SUBCUT SCH ×2 (07:36→20:58)
[2020-02-20 08:05] LABS: Vitamin D Total 25(OH) < 7.0 ng/mL (20-50)
[2020-02-20] MEDS: Potassium Chlor 20 meq TAB.ER PO SCH ×2 (15:18→20:47)
[2020-02-20] MEDS: LORazepam 2 mg VIAL 1 ml IV PUSH PRN (20:46)
[2020-02-21] MEDS: ZOSYN 3.375 GM Q8H per EXTENDED INFUSION IVPB SCH ×2 (00:30→07:50)
[2020-02-21 05:21] LABS: BUN/Creatinine Ratio 20.6 (8-20); Calcium 8.2 mg/dL (8.6-10.3); EGFR African American 88.1 (>60); EGFR Non-African American 72.8 (>60); Potassium 3.5 mmol/L (3.5-5.0)
[2020-02-21] MEDS: Enoxaparin 40 MG/0.4 ML SYR(*) SUBCUT SCH ×2 (07:51→20:36)
[2020-02-21] MEDS: Famotidine IV 10 MG/ML 2 ml VIAL (20 mg) IV SLOW PU SCH ×2 (07:51→20:34)
[2020-02-21] MEDS: LORazepam 2 mg VIAL 1 ml IV PUSH PRN (20:34)
[2020-02-22] MEDS: LORazepam 2 mg VIAL 1 ml IV PUSH PRN (04:16)
[2020-02-22] MEDS: Enoxaparin 40 MG/0.4 ML SYR(*) SUBCUT SCH ×2 (08:12→22:05)
[2020-02-22] MEDS: Famotidine IV 10 MG/ML 2 ml VIAL (20 mg) IV SLOW PU SCH ×2 (08:12→22:05)
[2020-02-23] MEDS: Enoxaparin 40 MG/0.4 ML SYR(*) SUBCUT SCH ×2 (09:25→20:00)
[2020-02-23] MEDS: Famotidine IV 10 MG/ML 2 ml VIAL (20 mg) IV SLOW PU SCH ×2 (09:25→20:00)
[2020-02-24] MEDS: Famotidine IV 10 MG/ML 2 ml VIAL (20 mg) IV SLOW PU SCH ×2 (08:27→19:21)
[2020-02-24] MEDS: Enoxaparin 40 MG/0.4 ML SYR(*) SUBCUT SCH ×2 (08:27→19:21)
[2020-02-24 18:25] LABS: BUN/Creatinine Ratio 18.1 (8-20); Calcium 9.1 mg/dL (8.6-10.3); EGFR African American 96.9 (>60); Potassium 3.7 mmol/L (3.5-5.0)
[2020-02-24 22:23] VITALS: BP 129/91
== END 2020-02-25 16:30 | disposition home or self-care (01) | DRG 207 ==
LOC: ED 15:19 → MERGE 18:09 → ICU 18:09 → MED 02-18 09:11
PROVIDERS: ADMIT Surgery Surgical Critical Care; ATTEND Internal Medicine